=== PATIENT | female | born 1945 | race Caucasian/White ===

== ENCOUNTER 2019-06-11 05:34 | Inpatient (IN) ==
[2019-06-11] MEDS ORDERED: GABAPENTIN 400 MG CAPSULE PO ONE (06:00)
[2019-06-11] MEDS ORDERED: ACETAMINOPHEN 500 MG TABLET PO ONE (06:00)
[2019-06-11] MEDS ORDERED: FAMOTIDINE 20 MG TABLET PO ONE (06:00)
[2019-06-11] MEDS ORDERED: DIAZEPAM 5 MG TABLET PO ONE (06:00)
[2019-06-11] MEDS ORDERED: VANCOMYCIN INJ 1,000 MG in SODIUM CHLORIDE 0.9% 250 ML IV ONE (06:00)
[2019-06-11] MEDS ORDERED: ceFAZolin 1,000 MG in SYRINGE 1 EACH IV ONE (06:00)
[2019-06-11] MEDS ORDERED: VANCOMYCIN 1,000 MG VIAL ONE (06:55)
[2019-06-11] MEDS ORDERED: FAMOTIDINE 20 MG TABLET ONE (06:56)
[2019-06-11] MEDS ORDERED: DIAZEPAM 5 MG TABLET ONE (06:56)
[2019-06-11] MEDS ORDERED: GABAPENTIN 400 MG CAPSULE ONE (06:56)
[2019-06-11] MEDS ORDERED: ACETAMINOPHEN 500 MG TABLET ONE (06:56)
[2019-06-11] MEDS: LACTATED RINGERS 1,000 ML IV SCH ×4 (08:03→19:53)
[2019-06-11] MEDS ORDERED: ROPIVACAINE 0.5% 30 ML VIAL ONE (08:49)
[2019-06-11] MEDS ORDERED: MIDAZOLAM 2 MG/2 ML VIAL ONE (08:50)
[2019-06-11] MEDS ORDERED: DEXAMETHASONE 4 MG/1 ML VIAL ONE (08:50)
[2019-06-11] MEDS ORDERED: LIDOCAINE 1% 5 ML VIAL ONE (08:50)
[2019-06-11] MEDS ORDERED: BACITRACIN OINT 0.9 GM PACK TOP ONE (09:02)
[2019-06-11] MEDS ORDERED: TRANEXAMIC ACID 1,000 MG/10 ML VIAL ONE ×2 (09:02→10:51)
[2019-06-11] MEDS ORDERED: fentaNYL 100 MCG/2 ML VIAL ONE (09:13)
[2019-06-11] MEDS ORDERED: DICLOFENAC 1% GEL 100 GM TUBE TOP PRN (09:58)
[2019-06-11] MEDS ORDERED: CYANOCOBALAMIN 1000 MCG/1 ML VIAL IM SCH (10:00)
[2019-06-11] MEDS ORDERED: MAGNESIUM HYDROXIDE SUSP 30 ML UDCUP PO PRN (10:03)
[2019-06-11] MEDS ORDERED: MORPHINE 4 MG/1 ML VIAL IV PRN (10:03)
[2019-06-11] MEDS ORDERED: oxyCODONE IR 5 MG TABLET PO PRN ×2 (10:03)
[2019-06-11] MEDS ORDERED: ONDANSETRON 4 MG/2 ML VIAL IV PRN ×2 (10:03→11:23)
[2019-06-11] MEDS: HYDROmorphone 2 MG/1 ML VIAL IV PRN ×3 (11:26→12:16)
[2019-06-11] MEDS ORDERED: PROPOFOL 200 MG/20 ML VIAL IV ONE (11:34)
[2019-06-11] MEDS ORDERED: LIDOCAINE 2% 5 ML VIAL ONE (11:35)
[2019-06-11] MEDS ORDERED: SODIUM CHLORIDE 0.9% 100 ML IV ONE (11:35)
[2019-06-11 11:37] LABS: Apearance,Urine CLEAR (Clear); Bilirubin,Urine Negative (Negative); Blood, Urine Negative (Negative); Glucose,Urine (UA) Negative (Negative); Hyaline Casts,Urine 4 /LPF (0-3); Ketones,Urine Negative (Negative); Mucus,Urine Occasional /LPF (Occasional); Nitrite,Urine Negative (Negative); Protein,Urine Negative; RBC,Urine 2 /HPF (0-4); Urine Color Yellow (Yellow); Urine Specific Gravity 1.016 (1.001-1.035); Urine Urobilinogen < 2.0 EU/DL (0.2-1.0); WBC,Urine 1 /HPF (0-6)
[2019-06-11] MEDS ORDERED: MEPERIDINE 25 MG/1 ML VIAL ONE (11:44)
[2019-06-11] MEDS ORDERED: PROMETHAZINE 25 MG/1 ML VIAL ONE (11:44)
[2019-06-11] MEDS ORDERED: MEPERIDINE 25 MG/1 ML VIAL IV ONE (12:05)
[2019-06-11] MEDS ORDERED: PROMETHAZINE INJ 25 MG in SODIUM CHLORIDE 0.9% 50 ML IV ONE (12:06)
[2019-06-11] MEDS ORDERED: ALBUMIN 5% 12.5 GM/250 ML VIAL IV ONE (12:42)
[2019-06-11] MEDS ORDERED: ALBUMIN 25% 12.5 GM in PREMIX 1 EACH IV ONE (12:44)
[2019-06-11 14:30] LABS: Basophils # 0.1 10*3/uL (0.0-0.2); Basophils % 0.4 % (0.0-0.8); Eosinophils % 0.1 % (0.00-10.9); Hematocrit 36.5 VOL% (35.7-47.0); Hemoglobin 10.9 GM/DL (12.0-16.0); Immature Granulocytes % 0.9 %; Immature Granulocytes Absolute 0.12 #; Lymphocytes # 1.7 10*3/uL (1.4-4.0); Lymphocytes % 12.5 % (21.3-54.2); Mean Corpuscular HGB Conc 29.9 GM/DL (32-36); Mean Corpuscular Volume 94.3 FL (87-102); Monocytes % 7.2 % (1.7-12.7); Neutrophils % 78.9 % (38.7-73.9); Platelet Count 258 T/CUMM (130-400); Red Blood Count 3.87 MC/CUMM (3.8-5.5); Red Cell Distribution Width 15.9 % (9.3-17.3); White Blood Count 13.5 T/CUMM (4-12)
[2019-06-11] MEDS ORDERED: INFLUENZA VIRUS VACCINE 0.5 ML SYRINGE IM ONE (14:51)
[2019-06-11] MEDS: KETOROLAC 15 MG/1 ML VIAL IV SCH ×3 (14:52→22:13)
[2019-06-11] MEDS: QUEtiapine 100 MG TABLET PO SCH ×2 (14:52→21:02)
[2019-06-11] MEDS: GABAPENTIN 600 MG TABLET PO SCH ×2 (14:52→21:02)
[2019-06-11] MEDS: ATENOLOL 50 MG TABLET PO SCH (14:55)
[2019-06-11] MEDS: FOLIC ACID 0.4 MG TABLET PO SCH (15:01)
[2019-06-11] MEDS: ceFAZolin 2,000 MG in PREMIX 1 EACH IV SCH (18:29)
[2019-06-11] MEDS: MORPHINE 4 MG/1 ML VIAL IV PRN (19:52)
[2019-06-11] MEDS ORDERED: FONDAPARINUX 2.5 MG/0.5 ML SYRINGE SUBCUT SCH (21:00)
[2019-06-11] MEDS: tiZANidine 4 MG TABLET PO SCH (21:02)
[2019-06-11] MEDS: levETIRAcetam 500 MG TABLET PO SCH (21:02)
[2019-06-11] MEDS: MEMANTINE 5 MG TABLET PO SCH (21:02)
[2019-06-11] MEDS: FAMOTIDINE 20 MG TABLET PO SCH (21:02)
[2019-06-11] MEDS: DOCUSATE SODIUM 100 MG CAPSULE PO SCH (21:02)
[2019-06-11] MEDS: RIVASTIGMINE 1.5 MG CAPSULE PO SCH (21:02)
[2019-06-12] MEDS: ATENOLOL 50 MG TABLET PO SCH ×2 (01:12→21:46)
[2019-06-12] MEDS: amLODIPine 5 MG TABLET PO SCH ×2 (01:12→08:30)
[2019-06-12] MEDS: LOSARTAN 25 MG TABLET PO SCH ×2 (01:12→08:30)
[2019-06-12] MEDS: LACTATED RINGERS 1,000 ML IV SCH ×3 (02:34→18:16)
[2019-06-12] MEDS: ceFAZolin 2,000 MG in PREMIX 1 EACH IV SCH (02:35)
[2019-06-12] MEDS: QUEtiapine 100 MG TABLET PO SCH ×3 (04:36→21:46)
[2019-06-12] MEDS: tiZANidine 4 MG TABLET PO SCH ×3 (04:36→21:46)
[2019-06-12] MEDS: KETOROLAC 15 MG/1 ML VIAL IV SCH (04:36)
[2019-06-12 05:28] LABS: Basophils % 0.3 % (0.0-0.8); Eosinophils % 0.1 % (0.00-10.9); Hematocrit 32.5 VOL% (35.7-47.0); Hemoglobin 9.8 GM/DL (12.0-16.0); Immature Granulocytes % 0.7 %; Immature Granulocytes Absolute 0.05 #; Lymphocytes % 26.2 % (21.3-54.2); Mean Corpuscular HGB Conc 30.2 GM/DL (32-36); Mean Corpuscular Volume 93.7 FL (87-102); Mean Platelet Volume 10.2 FL (9.6-12.0); Monocytes % 11.2 % (1.7-12.7); Neutrophils % 61.5 % (38.7-73.9); Platelet Count 226 T/CUMM (130-400); Red Blood Count 3.47 MC/CUMM (3.8-5.5); Red Cell Distribution Width 15.7 % (9.3-17.3); White Blood Count 7.7 T/CUMM (4-12)
[2019-06-12 05:43] LABS: Calcium 7.8 MG/DL (8.5-10.1); Osmolality,Calculated 278.7 MOS/KG (273-304)
[2019-06-12] MEDS: DOCUSATE SODIUM 100 MG CAPSULE PO SCH ×2 (08:28→21:46)
[2019-06-12] MEDS: FOLIC ACID 0.4 MG TABLET PO SCH (08:28)
[2019-06-12] MEDS: MEMANTINE 5 MG TABLET PO SCH ×2 (08:29→21:46)
[2019-06-12] MEDS: levETIRAcetam 500 MG TABLET PO SCH ×2 (08:29→21:46)
[2019-06-12] MEDS: RIVASTIGMINE 1.5 MG CAPSULE PO SCH ×2 (08:29→21:46)
[2019-06-12] MEDS: predniSONE 5 MG TABLET PO SCH (08:29)
[2019-06-12] MEDS: FAMOTIDINE 20 MG TABLET PO SCH ×2 (08:30→21:46)
[2019-06-12] MEDS ORDERED: ACETAMINOPHEN 325 MG TABLET PO PRN (10:04)
[2019-06-12] MEDS: DULoxetine 30 MG CAPSULE PO SCH (10:07)
[2019-06-12] MEDS: GABAPENTIN 600 MG TABLET PO SCH ×2 (11:49→21:46)
[2019-06-12] MEDS: APIXABAN 2.5 MG TABLET PO SCH (21:46)
[2019-06-12] MEDS: MORPHINE 4 MG/1 ML VIAL IV PRN (22:20)
[2019-06-13] MEDS: LACTATED RINGERS 1,000 ML IV SCH (02:16)
[2019-06-13] MEDS: tiZANidine 4 MG TABLET PO SCH ×3 (05:08→21:32)
[2019-06-13] MEDS: QUEtiapine 100 MG TABLET PO SCH ×3 (05:08→21:33)
[2019-06-13] MEDS: MORPHINE 4 MG/1 ML VIAL IV PRN (05:08)
[2019-06-13 05:18] LABS: Basophils % 0.3 % (0.0-0.8); Eosinophils # 0.1 10*3/uL (0.0-0.87); Eosinophils % 1.6 % (0.00-10.9); Hematocrit 30.7 VOL% (35.7-47.0); Hemoglobin 9.2 GM/DL (12.0-16.0); Immature Granulocytes % 0.9 %; Immature Granulocytes Absolute 0.08 #; Lymphocytes # 2.7 10*3/uL (1.4-4.0); Lymphocytes % 30.3 % (21.3-54.2); Mean Corpuscular Volume 94.2 FL (87-102); Mean Platelet Volume 10.6 FL (9.6-12.0); Monocytes % 10.5 % (1.7-12.7); Neutrophils % 56.4 % (38.7-73.9); Platelet Count 219 T/CUMM (130-400); Red Blood Count 3.26 MC/CUMM (3.8-5.5); Red Cell Distribution Width 15.7 % (9.3-17.3); White Blood Count 8.9 T/CUMM (4-12)
[2019-06-13 05:38] LABS: Osmolality,Calculated 282.4 MOS/KG (273-304)
[2019-06-13] MEDS: MEMANTINE 5 MG TABLET PO SCH ×2 (09:03→21:33)
[2019-06-13] MEDS: DULoxetine 30 MG CAPSULE PO SCH (09:03)
[2019-06-13] MEDS: RIVASTIGMINE 1.5 MG CAPSULE PO SCH ×2 (09:03→21:32)
[2019-06-13] MEDS: APIXABAN 2.5 MG TABLET PO SCH ×2 (09:03→21:33)
[2019-06-13] MEDS: predniSONE 5 MG TABLET PO SCH (09:03)
[2019-06-13] MEDS: DOCUSATE SODIUM 100 MG CAPSULE PO SCH ×2 (09:03→21:33)
[2019-06-13] MEDS: FOLIC ACID 0.4 MG TABLET PO SCH (09:03)
[2019-06-13] MEDS: levETIRAcetam 500 MG TABLET PO SCH ×2 (09:03→21:33)
[2019-06-13] MEDS: amLODIPine 5 MG TABLET PO SCH (09:04)
[2019-06-13] MEDS: FAMOTIDINE 20 MG TABLET PO SCH ×2 (09:04→21:32)
[2019-06-13] MEDS: LOSARTAN 25 MG TABLET PO SCH (09:04)
[2019-06-13] MEDS ORDERED: TUBERCULIN SKIN TEST 0.1 ML SYRINGE INTRADERM ONE (10:31)
[2019-06-13] MEDS: GABAPENTIN 600 MG TABLET PO SCH ×2 (11:56→21:32)
[2019-06-13] MEDS: ATENOLOL 50 MG TABLET PO SCH (21:33)
[2019-06-14 05:06] LABS: Basophils # 0.1 10*3/uL (0.0-0.2); Basophils % 0.7 % (0.0-0.8); Eosinophils # 0.2 10*3/uL (0.0-0.87); Eosinophils % 2.4 % (0.00-10.9); Hematocrit 29.8 VOL% (35.7-47.0); Hemoglobin 8.8 GM/DL (12.0-16.0); Immature Granulocytes % 2.6 %; Immature Granulocytes Absolute 0.19 #; Lymphocytes # 2.8 10*3/uL (1.4-4.0); Lymphocytes % 38.2 % (21.3-54.2); Mean Corpuscular HGB Conc 29.5 GM/DL (32-36); Mean Corpuscular Volume 94.9 FL (87-102); Mean Platelet Volume 10.2 FL (9.6-12.0); Monocytes % 11.5 % (1.7-12.7); NRBC # 0.02 10*3/uL; Neutrophils % 44.6 % (38.7-73.9); Platelet Count 209 T/CUMM (130-400); Red Blood Count 3.14 MC/CUMM (3.8-5.5); Red Cell Distribution Width 15.8 % (9.3-17.3); White Blood Count 7.2 T/CUMM (4-12)
[2019-06-14 05:32] LABS: Osmolality,Calculated 281.5 MOS/KG (273-304)
[2019-06-14] MEDS: tiZANidine 4 MG TABLET PO SCH (05:43)
[2019-06-14] MEDS: QUEtiapine 100 MG TABLET PO SCH (05:43)
[2019-06-14] MEDS: amLODIPine 5 MG TABLET PO SCH (08:19)
[2019-06-14] MEDS: LOSARTAN 25 MG TABLET PO SCH (08:19)
[2019-06-14] MEDS: APIXABAN 2.5 MG TABLET PO SCH (08:20)
[2019-06-14] MEDS: FAMOTIDINE 20 MG TABLET PO SCH (08:20)
[2019-06-14] MEDS: FOLIC ACID 0.4 MG TABLET PO SCH (08:20)
[2019-06-14] MEDS: MEMANTINE 5 MG TABLET PO SCH (08:20)
[2019-06-14] MEDS: RIVASTIGMINE 1.5 MG CAPSULE PO SCH (08:20)
[2019-06-14] MEDS: predniSONE 5 MG TABLET PO SCH (08:20)
[2019-06-14] MEDS: DOCUSATE SODIUM 100 MG CAPSULE PO SCH (08:20)
[2019-06-14] MEDS: levETIRAcetam 500 MG TABLET PO SCH (08:20)
[2019-06-14] MEDS: DULoxetine 30 MG CAPSULE PO SCH (08:20)
[2019-06-14] MEDS ORDERED: ATENOLOL 25 MG TABLET PO SCH (10:24)
[2019-06-14 11:33] VITALS: BP 117/33
[2019-06-15] MEDS ORDERED: ERGOCALCIFEROL 50,000 UNIT CAPSULE PO SCH (09:00)
== END 2019-06-14 11:13 | disposition home health service (06) | DRG 470 ==
LOC: N.SDSINP 05:34 → N.3E 14:31
PROVIDERS: ADMIT Orthopaedic Surgery; ATTEND Orthopaedic Surgery

== ENCOUNTER 2019-09-18 05:31 | Inpatient (IN) ==
[2019-09-18] MEDS ORDERED: VANCOMYCIN 1,000 MG VIAL ONE (05:58)
[2019-09-18] MEDS ORDERED: ceFAZolin 2,000 MG in PREMIX 1 EACH IV ONE (06:00)
[2019-09-18] MEDS ORDERED: VANCOMYCIN INJ 1,000 MG in SODIUM CHLORIDE 0.9% 250 ML IV ONE (06:00)
[2019-09-18] MEDS ORDERED: LACTATED RINGERS 1,000 ML IV SCH (06:00)
[2019-09-18] MEDS ORDERED: PANTOPRAZOLE 40 MG TABLET PO ONE ×2 (08:13→08:33)
[2019-09-18] MEDS ORDERED: DIAZEPAM 5 MG TABLET PO ONE (08:13)
[2019-09-18] MEDS ORDERED: GABAPENTIN 400 MG CAPSULE PO ONE (08:13)
[2019-09-18] MEDS ORDERED: DIAZEPAM 5 MG TABLET ONE (08:32)
[2019-09-18] MEDS ORDERED: GABAPENTIN 400 MG CAPSULE ONE (08:33)
[2019-09-18] MEDS ORDERED: ZALEPLON 5 MG CAPSULE PO PRN (10:12)
[2019-09-18] MEDS ORDERED: diphenhydrAMINE CAP 25 MG CAPSULE PO PRN (10:12)
[2019-09-18] MEDS ORDERED: MORPHINE 4 MG/1 ML VIAL IV PRN ×2 (10:12)
[2019-09-18] MEDS ORDERED: ONDANSETRON 4 MG/2 ML VIAL IV PRN (10:12)
[2019-09-18] MEDS ORDERED: oxyCODONE IR 5 MG TABLET PO PRN ×2 (10:12)
[2019-09-18] MEDS ORDERED: DEXMEDETOMIDINE 200 MCG/2 ML VIAL ONE (10:33)
[2019-09-18] MEDS ORDERED: BACITRACIN OINT 0.9 GM PACK TOP ONE (10:39)
[2019-09-18] MEDS ORDERED: DEXAMETHASONE 4 MG/1 ML VIAL ONE (10:44)
[2019-09-18] MEDS ORDERED: EPINEPHrine 1 MG/ML VIAL ONE (10:44)
[2019-09-18] MEDS ORDERED: BUPIVACAINE MPF 0.25% 30 ML VIAL ONE (10:44)
[2019-09-18] MEDS ORDERED: MIDAZOLAM 2 MG/2 ML VIAL ONE ×2 (10:52→13:08)
[2019-09-18] MEDS ORDERED: TRANEXAMIC ACID 1,000 MG/10 ML VIAL ONE ×2 (11:47→12:32)
[2019-09-18] MEDS ORDERED: LIDOCAINE 2% 5 ML VIAL ONE (13:07)
[2019-09-18] MEDS ORDERED: propofoL 200 MG/20 ML VIAL IV ONE (13:07)
[2019-09-18] MEDS ORDERED: PHENYLEPHRINE 1 MG/10 ML SYRINGE IV ONE (13:08)
[2019-09-18] MEDS ORDERED: ACETAMINOPHEN 1,000 MG/100 ML VIAL IV ONE (13:08)
[2019-09-18] MEDS ORDERED: BUPIVACAINE SPINAL 0.75% 2 ML AMP SPINAL ONE (13:08)
[2019-09-18] MEDS ORDERED: HYDROCORTISONE 100 MG VIAL ONE (13:08)
[2019-09-18] MEDS ORDERED: SODIUM CHLORIDE 0.9% 1,000 ML IV ONE (13:08)
[2019-09-18] MEDS ORDERED: fentaNYL 100 MCG/2 ML VIAL ONE (13:08)
[2019-09-18 13:16] LABS: Apearance,Urine CLEAR (Clear); Bilirubin,Urine Negative (Negative); Blood, Urine Negative (Negative); Glucose,Urine (UA) Negative (Negative); Ketones,Urine Negative (Negative); Nitrite,Urine Negative (Negative); Protein,Urine Negative; RBC,Urine 1 /HPF (0-4); Urine Color Yellow (Yellow); Urine Specific Gravity 1.015 (1.001-1.035); Urine Urobilinogen < 2.0 EU/DL (0.2-1.0); WBC,Urine 1 /HPF (0-6)
[2019-09-18] MEDS: KETOROLAC 15 MG/1 ML VIAL IV SCH ×2 (13:58→19:36)
[2019-09-18] MEDS: LACTATED RINGERS 1,000 ML IV SCH ×2 (14:03→23:55)
[2019-09-18] MEDS ORDERED: HYDROmorphone 2 MG/1 ML VIAL ONE (14:59)
[2019-09-18] MEDS ORDERED: HYDROmorphone 2 MG/1 ML VIAL IV PRN (15:02)
[2019-09-18] MEDS: GABAPENTIN 600 MG TABLET PO SCH ×2 (15:41→21:10)
[2019-09-18] MEDS: QUEtiapine 100 MG TABLET PO SCH ×2 (15:41→21:12)
[2019-09-18] MEDS: ceFAZolin 2,000 MG in PREMIX 1 EACH IV SCH ×2 (16:07→23:56)
[2019-09-18] MEDS: atenoloL 50 MG TABLET PO SCH (21:10)
[2019-09-18] MEDS: levETIRAcetam 500 MG TABLET PO SCH (21:11)
[2019-09-18] MEDS: MEMANTINE 5 MG TABLET PO SCH (21:12)
[2019-09-18] MEDS: RIVASTIGMINE 1.5 MG CAPSULE PO SCH (21:12)
[2019-09-18] MEDS: MICONAZOLE 2% VAG CREAM 45 GM TUBE VAG SCH ×2 (21:15→21:16)
[2019-09-18] MEDS: DOCUSATE SODIUM 100 MG CAPSULE PO SCH (21:15)
[2019-09-18] MEDS: DOXYCYCLINE HYCLATE 100 MG CAPSULE PO SCH (21:15)
[2019-09-19] MEDS: KETOROLAC 15 MG/1 ML VIAL IV SCH ×2 (02:54→10:29)
[2019-09-19] MEDS: QUEtiapine 100 MG TABLET PO SCH ×3 (05:00→22:19)
[2019-09-19] MEDS: FONDAPARINUX 2.5 MG/0.5 ML SYRINGE SUBCUT SCH (05:00)
[2019-09-19] MEDS: LACTATED RINGERS 1,000 ML IV SCH (05:25)
[2019-09-19 07:32] LABS: Basophils % 0.3 % (0.0-0.8); Hematocrit 28.1 VOL% (35.7-47.0); Hemoglobin 8.3 GM/DL (12.0-16.0); Immature Granulocytes % 1.1 %; Immature Granulocytes Absolute 0.08 #; Lymphocytes # 1.4 10*3/uL (1.4-4.0); Lymphocytes % 19.5 % (21.3-54.2); Mean Corpuscular HGB Conc 29.5 GM/DL (32-36); Mean Corpuscular Volume 86.7 FL (87-102); Mean Platelet Volume 9.5 FL (9.6-12.0); Monocytes % 11.3 % (1.7-12.7); Neutrophils % 67.8 % (38.7-73.9); Platelet Count 211 T/CUMM (130-400); Red Blood Count 3.24 MC/CUMM (3.8-5.5); Red Cell Distribution Width 17.4 % (9.3-17.3)
[2019-09-19 07:51] LABS: Calcium 7.8 MG/DL (8.5-10.1); Osmolality,Calculated 283.3 MOS/KG (273-304)
[2019-09-19] MEDS: DOXYCYCLINE HYCLATE 100 MG CAPSULE PO SCH ×2 (10:16→22:19)
[2019-09-19] MEDS: PANTOPRAZOLE 40 MG TABLET PO SCH (10:16)
[2019-09-19] MEDS: amLODIPine 10 MG TABLET PO SCH ×2 (10:16→10:30)
[2019-09-19] MEDS: RIVASTIGMINE 1.5 MG CAPSULE PO SCH ×2 (10:16→22:19)
[2019-09-19] MEDS: LOSARTAN 25 MG TABLET PO SCH ×3 (10:17→22:18)
[2019-09-19] MEDS: levETIRAcetam 500 MG TABLET PO SCH ×2 (10:18→22:19)
[2019-09-19] MEDS: MEMANTINE 5 MG TABLET PO SCH ×2 (10:18→22:19)
[2019-09-19] MEDS: DULoxetine 30 MG CAPSULE PO SCH (10:18)
[2019-09-19] MEDS: FOLIC ACID 0.4 MG TABLET PO SCH (10:18)
[2019-09-19] MEDS: predniSONE 5 MG TABLET PO SCH (10:19)
[2019-09-19] MEDS: DOCUSATE SODIUM 100 MG CAPSULE PO SCH ×2 (10:29→22:18)
[2019-09-19] MEDS: GABAPENTIN 600 MG TABLET PO SCH ×2 (13:54→22:18)
[2019-09-19] MEDS: MICONAZOLE 2% VAG CREAM 45 GM TUBE VAG SCH (22:19)
[2019-09-19] MEDS: atenoloL 50 MG TABLET PO SCH (22:19)
[2019-09-20] MEDS: FONDAPARINUX 2.5 MG/0.5 ML SYRINGE SUBCUT SCH (04:57)
[2019-09-20] MEDS: QUEtiapine 100 MG TABLET PO SCH ×2 (04:58→11:37)
[2019-09-20 05:41] LABS: Basophils # 0.1 10*3/uL (0.0-0.2); Basophils % 0.6 % (0.0-0.8); Eosinophils # 0.1 10*3/uL (0.0-0.87); Eosinophils % 1.7 % (0.00-10.9); Hematocrit 30.6 VOL% (35.7-47.0); Hemoglobin 8.9 GM/DL (12.0-16.0); Immature Granulocytes % 1.6 %; Immature Granulocytes Absolute 0.13 #; Lymphocytes % 36.1 % (21.3-54.2); Mean Corpuscular HGB Conc 29.1 GM/DL (32-36); Mean Corpuscular Volume 88.7 FL (87-102); Mean Platelet Volume 10.9 FL (9.6-12.0); NRBC # 0.04 10*3/uL; Platelet Count 209 T/CUMM (130-400); Red Blood Count 3.45 MC/CUMM (3.8-5.5); White Blood Count 8.3 T/CUMM (4-12)
[2019-09-20] MEDS ORDERED: MAGNESIUM HYDROXIDE SUSP 30 ML UDCUP PO PRN (06:00)
[2019-09-20 06:03] LABS: Eosinophils 2 % (0-10); Hypochromasia 1+; Lymphocytes 41 % (20-55); Platelet Estimate Adequate; Segmented Neutrophils 49 % (50-85); Total Cells Counted 100
[2019-09-20 06:04] LABS: Atypical Lymphocytes Few
[2019-09-20] MEDS: DOXYCYCLINE HYCLATE 100 MG CAPSULE PO SCH ×2 (08:55→21:12)
[2019-09-20] MEDS: LOSARTAN 25 MG TABLET PO SCH ×3 (08:55→21:24)
[2019-09-20] MEDS: DULoxetine 30 MG CAPSULE PO SCH (08:55)
[2019-09-20] MEDS: amLODIPine 10 MG TABLET PO SCH (08:55)
[2019-09-20] MEDS: levETIRAcetam 500 MG TABLET PO SCH ×2 (08:55→21:12)
[2019-09-20] MEDS: FOLIC ACID 0.4 MG TABLET PO SCH (08:56)
[2019-09-20] MEDS: predniSONE 5 MG TABLET PO SCH (08:56)
[2019-09-20] MEDS: MEMANTINE 5 MG TABLET PO SCH ×2 (08:56→21:12)
[2019-09-20] MEDS: DOCUSATE SODIUM 100 MG CAPSULE PO SCH ×2 (08:57→21:12)
[2019-09-20] MEDS: PANTOPRAZOLE 40 MG TABLET PO SCH (09:00)
[2019-09-20] MEDS: RIVASTIGMINE 1.5 MG CAPSULE PO SCH ×2 (09:00→21:12)
[2019-09-20] MEDS: GABAPENTIN 600 MG TABLET PO SCH (11:37)
[2019-09-20] MEDS: atenoloL 50 MG TABLET PO SCH (21:12)
[2019-09-20] MEDS: MICONAZOLE 2% VAG CREAM 45 GM TUBE VAG SCH (21:13)
[2019-09-20] MEDS ORDERED: QUEtiapine 25 MG TABLET PO SCH (22:00)
[2019-09-21] MEDS: FONDAPARINUX 2.5 MG/0.5 ML SYRINGE SUBCUT SCH (03:40)
[2019-09-21 05:05] LABS: Basophils # 0.1 10*3/uL (0.0-0.2); Basophils % 0.8 % (0.0-0.8); Eosinophils # 0.2 10*3/uL (0.0-0.87); Hematocrit 28.3 VOL% (35.7-47.0); Hemoglobin 8.2 GM/DL (12.0-16.0); Immature Granulocytes % 2.1 %; Immature Granulocytes Absolute 0.18 #; Lymphocytes # 3.1 10*3/uL (1.4-4.0); Mean Corpuscular Volume 89.6 FL (87-102); Mean Platelet Volume 10.3 FL (9.6-12.0); Monocytes % 11.6 % (1.7-12.7); NRBC # 0.04 10*3/uL; Neutrophils % 47.5 % (38.7-73.9); Platelet Count 261 T/CUMM (130-400); Red Blood Count 3.16 MC/CUMM (3.8-5.5); Red Cell Distribution Width 17.9 % (9.3-17.3); White Blood Count 8.6 T/CUMM (4-12)
[2019-09-21 05:52] LABS: Osmolality,Calculated 280.7 MOS/KG (273-304); Thyroid Stimulating Hormone 2.49 uIU/ml (0.358-3.74)
[2019-09-21] MEDS ORDERED: METHOTREXATE 2.5 MG TABLET PO SCH (09:00)
[2019-09-21] MEDS ORDERED: ERGOCALCIFEROL 50,000 UNIT CAPSULE PO SCH (09:00)
[2019-09-21] MEDS: DULoxetine 30 MG CAPSULE PO SCH (09:09)
[2019-09-21] MEDS: LOSARTAN 25 MG TABLET PO SCH (09:09)
[2019-09-21] MEDS: DOCUSATE SODIUM 100 MG CAPSULE PO SCH (09:09)
[2019-09-21] MEDS: PANTOPRAZOLE 40 MG TABLET PO SCH (09:10)
[2019-09-21] MEDS: FOLIC ACID 0.4 MG TABLET PO SCH (09:10)
[2019-09-21] MEDS: levETIRAcetam 500 MG TABLET PO SCH (09:10)
[2019-09-21] MEDS: MEMANTINE 5 MG TABLET PO SCH (09:11)
[2019-09-21] MEDS: DOXYCYCLINE HYCLATE 100 MG CAPSULE PO SCH (09:11)
[2019-09-21] MEDS: amLODIPine 10 MG TABLET PO SCH (09:11)
[2019-09-21] MEDS: RIVASTIGMINE 1.5 MG CAPSULE PO SCH (09:11)
[2019-09-21] MEDS: predniSONE 5 MG TABLET PO SCH (09:11)
[2019-09-21] MEDS ORDERED: ONDANSETRON 4 MG TABLET PO ONE (11:52)
[2019-09-21 11:57] VITALS: BP 128/60
[2019-09-24] MEDS ORDERED: CYANOCOBALAMIN 1000 MCG/1 ML VIAL IM SCH (09:00)
== END 2019-09-21 13:15 | disposition swing bed (61) | DRG 470 ==
LOC: N.SDSINP 05:31 → N.3E 15:20
PROVIDERS: ADMIT Orthopaedic Surgery; ATTEND Orthopaedic Surgery